=== PATIENT | female | born 1995 | race Hispanic/Latino ===

== ENCOUNTER 2017-08-18 14:54 | Emergency (ER) | payer MEDICAID, SELFPAY ==
[2017-08-18] MEDS ORDERED: Morphine 4 MG/ML VIAL ONE (15:41)
--- NOTE | 2017-08-18 16:13 | RAD ---
SINGLE VIEW OF THE CHEST: Comparison: None. History: Fatigue for two weeks. Chest pain. FINDINGS: Single view of the chest shows a normal sized cardiomediastinal silhouette. There is no evidence of c onsolidation, mass, or pleural effusion. The bones are unremarkable. IMPRESSION: No evidence of acute cardiopulmonary disease. POS: [facility]
[2017-08-18 16:56] LABS: #Eosinphils 0.4 thou/uL (0.0-0.7); #Lymphocytes 1.9 thou/uL (1.20-3.40); #Monocytes 0.4 thou/uL (0.11-0.59); #Neutrophils 3.9 thou/uL (1.40-6.50); %Basophils 0.6 % (0.0-1.0); %Eosinophils 5.7 % (0.0-10.0); %Lymphocytes 29.6 % (21.0-51.0); %Monocytes 5.3 % (0.0-10.0); Hematocrit 36.5 % (36.0-47.0); Mean Platelet Volume 9.9 fL (7.4-10.4); Red Blood Cell (RBC) Count 4.26 mill/uL (4.20-5.40); White Blood Cell (WBC) Count 6.6 thou/uL (4.8-10.8)
[2017-08-18 17:18] LABS: ALT (SGPT) 25 U/L (8-55); AST (SGOT) 16 U/L (5-34); Alkaline Phosphatase 86 U/L (40-150); Anion Gap 8 mmol/L (10-20); BUN (Urea Nitrogen) 12 mg/dL (7.0-18.7); Bilirubin, Total 0.6 mg/dL (0.2-1.2); Calc. Creatinine Clearance 0 mL/min (70-130); Calcium 8.7 mg/dL (7.8-10.44); Carbon Dioxide 28 mmol/L (22-29); Chloride 106 mmol/L (98-107); Estimated GFR-MDRD 73; Globulin 3.4 g/dL (2.4-3.5); Lipase 17 U/L (8-78); Protein, Total 7.2 g/dL (6.0-8.3)
--- NOTE | 2017-08-18 17:38 | ULT ---
GALLBLADDER ULTRASOUND: 08/18/17 HISTORY: Right upper quadrant pain. The gallbladder is contracted and not adequately evaluated. No definite stones identified. Common olaf t is normal caliber. Liver is unremarkable in appearance. The right kidney as imaged is unremarkable. The pancreas is obscured. IMPRESSION: Patient is nonfasting and the gallbladder is contracted. Inadequate evaluation. Recommend repeat exam with overnight fast to adequately assess the gallbladder. POS: [facility]
[2017-08-18 17:57] LABS: Bilirubin Negative (Negative); Blood, Urine Negative (Negative); Glucose, Urine (Dipstick) Negative (Negative); Ketone, Urine Negative (Negative); Nitrite Negative (Negative); Protein, Urine (Dipstick) Negative (Neg-Trace)
[2017-08-18 17:59] LABS: Bacteria/HPF 1+ HPF (None Seen); Hyaline Casts/LPF 0-3 HYALINE CAST LPF (0-3 Hyaline)
[2017-08-18 18:17] LABS: RBC/HPF 0-3 HPF (0-3)
--- NOTE | 2017-08-27 15:53 | EKG ---
Test Reason : Blood Pressure : / mmHG Vent. Rate : 080 BPM Atrial Rate : 080 BPM P-R Int : 146 ms QRS Dur : 080 ms QT Int : 386 ms P-R-T Axes : 047 000 -04 degrees QTc Int : 445 ms Normal sinus rhythm Minimal voltage criteria for LVH, may be normal variant Cannot rule out Anterior infarct , age undetermined Abnormal ECG Confirmed by DEV SHOEMAKER, VERENICE ([id number]), acquisitions editor DANIELA CABRAL ([id number]) on 08/27/2017 3:52:21 PM Referred By: Confirmed By:VERENICE MÉNDEZ MD
== END 2017-08-18 18:40 | disposition home or self-care (01) ==
LOC: ERS 14:54
DX: R55 Syncope and collapse (principal); F41.9 Anxiety disorder, unspecified; F32.9 Major depressive disorder, single episode, unspecified
CPT/HCPCS: 36415; 71010; 76705; 80053; 81003; 81015; 83690; 84703; 85025; 93005; 96361; 96374; J2270

== ENCOUNTER 2018-08-04 12:46 | Emergency (ER) | payer OTHER, SELFPAY ==
[2018-08-04] MEDS ORDERED: Famotidine/PF 20 mg/2ml Vial ONE (13:15)
== END 2018-08-04 15:56 | disposition home or self-care (01) ==
LOC: ERS 12:46
DX: T78.2XXA Anaphylactic shock, unspecified, initial encounter (principal); F41.9 Anxiety disorder, unspecified; F32.9 Major depressive disorder, single episode, unspecified
CPT/HCPCS: 96374; S0028

== ENCOUNTER 2018-10-07 19:24 | Emergency (ER) | payer OTHER, SELFPAY ==
[2018-10-07 19:53] LABS: #Basophils 0.1 thou/uL (0.0-0.2); #Eosinphils 0.3 thou/uL (0.0-0.7); #Lymphocytes 2.4 thou/uL (1.20-3.40); #Monocytes 0.4 thou/uL (0.11-0.59); #Neutrophils 3.9 thou/uL (1.40-6.50); %Basophils 0.9 % (0.0-1.0); %Lymphocytes 34.5 % (21.0-51.0); %Monocytes 5.5 % (0.0-10.0); %Neutrophils 55.1 % (42.0-75.0); Hemoglobin 11.9 g/dL (12.0-16.0); Mean Corpuscular HGB CONC 32.7 g/dL (32.0-36.0); Mean Corpuscular Hemoglobin 26.5 pg (27.0-31.0); Mean Corpuscular Volume 81.2 fL (78.0-98.0); Mean Platelet Volume 10.7 fL (7.4-10.4); Platelet Count 181 thou/uL (130-400); RBC Distribution Width 15.3 % (11.5-14.5); Red Blood Cell (RBC) Count 4.47 mill/uL (4.20-5.40); White Blood Cell (WBC) Count 7.1 thou/uL (4.8-10.8)
[2018-10-07 19:57] LABS: BHCG - Serum POSITIVE (NEGATIVE); Pregs Control Background? CLEAR/WHITE (CLR/WHITE); Pregs Control Bar Appear? YES (CONTROL BAR)
[2018-10-07 20:10] LABS: Bilirubin Negative (Negative); Blood, Urine Negative (Negative); Clarity CLOUDY (Clear); Glucose, Urine (Dipstick) Negative (Negative); Leukocyte Moderate (Negative); Nitrite Negative (Negative); Protein, Urine (Dipstick) Negative (Neg-Trace)
[2018-10-07 20:12] LABS: Bacteria/HPF Rare-Few HPF (None Seen); Hyaline Casts/LPF 0-3 HYALINE CAST LPF (0-3 Hyaline); Pathc Cast-AUWi Flag 0.29 (0-2.49); RBC/HPF 0-3 HPF (0-3)
[2018-10-07 20:14] LABS: ALT (SGPT) 13 U/L (8-55); AST (SGOT) 10 U/L (5-34); Alkaline Phosphatase 65 U/L (40-150); Anion Gap 10 mmol/L (10-20); BUN (Urea Nitrogen) 6 mg/dL (7.0-18.7); Bilirubin, Total 0.4 mg/dL (0.2-1.2); Calc. Creatinine Clearance 0 mL/min (70-130); Calcium 9.5 mg/dL (7.8-10.44); Carbon Dioxide 24 mmol/L (22-29); Chloride 106 mmol/L (98-107); Estimated GFR-MDRD Greater than 90; Globulin 3.4 g/dL (2.4-3.5); Glucose 110 mg/dL (70-105); Lipase 21 U/L (8-78); Potassium 4.1 mmol/L (3.5-5.1); Protein, Total 7.4 g/dL (6.0-8.3); Sodium 136 mmol/L (136-145)
--- NOTE | 2018-10-07 21:40 | ULT ---
PELVIC ULTRASOUND INCLUDING TRANSABDOMINAL AND VASCULAR DUPLEX WITH COLOR AND SPECTRAL DOPPLER IMAGIN 10/07/18 No transvaginal exam was performed. HISTORY: Pelvic pain. Confirm intrauterine . There is an early viable intrauterine with a heart rate of 178 beats per minute. [place] n-rump length equals 2.5 cm equivalent to 9 weeks, 2 days gestation. Small amount of extra chorionic fluid probably extra chorionic hemorrhage. Right ovary measures 1.7 x 2.5 x 2.6 cm. The left ovary me asures 1.8 x 2.5 x 2.3 cm. Vascular duplex demonstrates vascular flow to both ovaries. No evidence for ovarian torsion. No abno rmal fluid collection. IMPRESSION: Early viable intrauterine fetus at 9 weeks, 2 days gestation with an EDC of 05/10/19. Small amount of probable extra chorionic hemorrhage. POS: [facility]
== END 2018-10-07 22:30 | disposition home or self-care (01) ==
LOC: ERS 19:24
DX: O20.0 Threatened abortion (principal); O99.341 Other mental disorders complicating pregnancy, first trimester; F41.9 Anxiety disorder, unspecified; F32.9 Major depressive disorder, single episode, unspecified; Z3A.09 9 weeks gestation of pregnancy
CPT/HCPCS: 36415; 76856; 80053; 81003; 81015; 83690; 84702; 84703; 85025; 86900; 86901; 93976

== ENCOUNTER 2018-12-19 09:37 | Outpatient (CLI) | payer OTHER ==
--- NOTE | 2018-12-19 11:45 | ULT ---
OB ULTRASOUND: HISTORY: Size and dates. COMPARISON: Exam from 10/07/2018. FINDINGS: There is a single viable intrauterine , which is in a cephalic presentation. The cervical c anal length is 4.1 cm. The placenta is posterior in location without evidence of previa. The amniot ic fluid is adequate for this stage of . The amniotic fluid index is 14.5. The heart rate is 152 beats per minute. measurements are as follows: BPD: 4.5 cm (19 weeks 5 days). HEAD CIRCUMFERENCE: 16.6 cm (19 weeks 3 days). ABDOMINAL CIRCUMFERENCE: 14.9 cm (20 weeks 2 days). FEMUR LENGTH: 3.2 cm (19 weeks 6 days). Review of anatomy shows no abnormalities detected. IMPRESSION: 1. Single viable intrauterine , in a cephalic presentation. Overall measurements correspon ding to a gestational age of 19 weeks 6 days. Estimated date of delivery 05/09/2019. 2. Placenta which is posterior in location without evidence of previa. POS: [facility]
== END 2018-12-19 09:38 | disposition home or self-care (01) ==
LOC: BICULT 09:37
PROVIDERS: ATTEND Family Medicine
DX: Z34.82 Encounter for supervision of other normal pregnancy, second trimester (principal); Z3A.19 19 weeks gestation of pregnancy
CPT/HCPCS: 76805

== ENCOUNTER 2018-12-29 17:11 | Emergency (ER) | payer OTHER ==
[2018-12-29] MEDS ORDERED: Famotidine/PF 20 mg/2ml Vial ONE (17:47)
== END 2018-12-29 18:42 | disposition home or self-care (01) ==
LOC: ERS 17:11
DX: O9A.212 Injury, poisoning and certain other consequences of external causes complicating pregnancy, second trimester (principal); T78.40XA Allergy, unspecified, initial encounter; O99.342 Other mental disorders complicating pregnancy, second trimester; F41.9 Anxiety disorder, unspecified; F32.9 Major depressive disorder, single episode, unspecified; Z3A.21 21 weeks gestation of pregnancy
CPT/HCPCS: 94640; 96374; J7620; S0028

== ENCOUNTER 2019-02-05 10:20 | Day surgery (SDC) | payer OTHER ==
[2019-02-05 11:19] VITALS: BMI 31.1
[2019-02-05] MEDS ORDERED: diphenhydrAMINE 50 MG/ML VIAL IVP PRN (11:29)
[2019-02-05] MEDS ORDERED: Lactated Ringer's 1,000 ML IV SCH (11:30)
[2019-02-05] MEDS ORDERED: diphenhydrAMINE 50 MG/ML VIAL ONE (11:33)
[2019-02-05] MEDS ORDERED: Metoclopramide HCl 10 MG/2 ML VIAL ONE (11:36)
[2019-02-05] MEDS: Metoclopramide HCl 10 MG/2 ML VIAL IVP PRN ×2 (11:51→13:08)
--- NOTE | 2019-02-05 15:30 | PRG ---
DATE OF SERVICE: 02/05/2019 OB ED note. TIME OF SERVICE: 1500 hours. PRESENTING COMPLAINT: Headache. HISTORY OF PRESENT ILLNESS: Ms. Castanon is a 23-year-old 5, para 3, AB 1, who presents with a 1-day history of headache that is frontal. She rates it an 8/10. She has had mild nausea. She also had some spots. She denies swelling. She denies history of eclampsia or preeclampsia. 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 Blood type, A positive. Antibody, negative. Pap, negative. Rubella immune. VDRL, nonreactive. Hepatitis B, GC, chlamydia negative. PAST MEDICAL HISTORY: Significant for psychiatric illness including bipolar diagnosis. SURGERIES: Denies. ALLERGIES: NO DRUG ALLERGIES. SOCIAL HISTORY: Denies tobacco, alcohol, or drug abuse. FAMILY HISTORY: Noncontributory. REVIEW OF SYSTEMS: Noncontributory. PHYSICAL EXAMINATION: GENERAL: female, complaining of headache. VITAL SIGNS: Temperature 98.5, respirations 18, blood pressure 118/72. HEENT: Within normal limits. NEURO: Normal neuro exam, DTRs 1+. LUNGS: Clear to auscultation bilaterally. HEART: Regular rate and rhythm. ABDOMEN: Soft, nontender. Fundal height of 25 cm. FHTs 130s. PELVIC: Deferred. EXTREMITIES: No clubbing, cyanosis, or edema. Serial blood pressures remained less than 130s over 80s and no part of the patient's exam was suggestive for preeclampsia. The patient was administered IV fluids along with Reglan 10 mg x2 as well as Benadryl 25 mg, and had an improvement in her headache from 8-9 to 3/10. With negative neurologic findings, decision was made not to proceed with CT scan. The patient was given food, which had caused more improvement in her headache and discharged home with ER precautions. Job ID: [id number]
== END 2019-02-05 15:40 | disposition home health service (06) ==
LOC: L&D/OP 10:20
PROVIDERS: ATTEND Family Medicine
DX: O99.89 Other specified diseases and conditions complicating pregnancy, childbirth and the puerperium (principal); R51 Headache; O99.340 Other mental disorders complicating pregnancy, unspecified trimester; F31.9 Bipolar disorder, unspecified; Z91.018 Allergy to other foods
CPT/HCPCS: 96360; 96361; 96375; 99282; J1200; J2765

== ENCOUNTER 2019-03-31 21:46 | Day surgery (SDC) | payer OTHER ==
[2019-03-31 22:19] VITALS: BP 117/70; TEMP 98.7; BMI 32.7
[2019-03-31 22:40] LABS: Amnisure Test No Membranes Rupture (No Rupture)
[2019-03-31 22:41] LABS: Amnisure Internal Control QC ACCEPTABLE (ACCEPTABLE)
[2019-03-31] MEDS ORDERED: hydrALAZINE 20 MG/ML VIAL SLOW IVP PRN (22:50)
--- NOTE | 2019-03-31 22:52 | PDOC.LDHP ---
Labor and Delivery H&P Chief complaint: loss of fluid HPI: Patient of Dr schafer Time: 2250 Location: Triage HPI: 23 yo with EDC 9/3 at 34 weeks 4 days with possible LOF at 12noon. Few CTX. No VB, no recent trauma. Has good FM. HX Bipolar and anxiety in past but no meds in years. Review of Systems: complete ROS completed and as per HPI Current gestational age (weeks): 34 (4 days) Due date: 05/08/19 Dating criteria: last menstrual period Grav: 5 Para: 3 OB History Details: All SVDs. One PTB at 36 weeks Current complications: none Abnormal US findings: No Past Medical History: HX Anxiety and Bipolar--stable, controlled Current medications: pre-tyrell vitamins Previous surgical history: none Allergies/Adverse Reactions: Allergies Allergy/AdvReac Type Severity Reaction Status Date / Time honey Allergy Severe Hives Verified 02/05/19 11:07 pecan nut Allergy Severe Short of Verified 02/05/19 11:07 Breath Social history: none - Physical Exam Vital signs reviewed and normal: yes (afebrile, BP wnl) General: NAD Heart: RRR Lungs: CTAB Abdomen: gravid Extremeties: no edema FHT: category 2, variable decelerations (Neves accels but occasional variables, good variability) [place] contractions every: rare - Assessment 34 weeks 4 days with c/o LOF at noon today. Variables on NST - Plan Plan: observation in L&D ( sent and negative, I will perform SSE to confirm. Ordered BPP for occasional variables on monitor. OBS.If admitted for labor concern, needs GBS coverage for EGA.)
--- NOTE | 2019-03-31 23:04 | PDOC.EVN ---
Event Note - Event Note Event Note: SSE: Exam explained to patient and partner in danish (for partner). SSE performed per usual technique. No evidenec poolibng. Neg valsalva and cough test. CX visually closed. Await BPP.
--- NOTE | 2019-04-01 08:00 | ULT ---
PRELIMINARY REPORT/[facility]/EMERGENCY AFTER HOURS PROCEDURE: EXAM: US , Limited EXAM DATE/TIME: 03/31/2019 11:46 PM CLINICAL HISTORY: 23 years old, female; Other: Eval for prom, well being; TECHNIQUE: Imaging protocol: Real-time ultrasound of the maternal uterus with image documentation. Exam focused on the clinical indication. COMPARISON: No relevant prior studies available. FINDINGS: Single living intrauterine gestation in vertex presentation. heart rate:145 bpm. BPD: 34w5d. JAMISON(BPD): 05/01/2019. JAMISON(LMP): 05/08/2019. No placental abruption. VONDA: 10 cm. Cervix is not well vis ualized. IMPRESSION: Single viable intrauterine . Findings described above. EXAM: US Biophysical Profile Without Non-Stress Test EXAM DATE/TIME: 03/31/2019 11:46 PM CLINICAL HISTORY: 23 years old, female; Other: Eval for prom, well being; TECHNIQUE: Imaging protocol: US biophysical profile without non-stress testing. COMPARISON: No relevant prior studies available. FINDINGS: Breathin/2 Gross body movements: 2/2 tone: 2/2 Qualitative amniotic fluid: 2/2 IMPRESSION: Biophysical profile score is 8 out of 8. Thank you for allowing us to participate in the care of your patient. Dictated and Authenticated by: Vamshi Virgen MD 04/01/2019 2:27 AM Central Time ([place] & [place]) FINAL REPORT BIOPHYSICAL PROFILE: Date: 03/31/19 IMPRESSION: I agree with the preliminary report provided by Huy. Biophysical profile score is 8 out of 8. POS:
== END 2019-04-01 00:03 | disposition home or self-care (01) ==
LOC: L&D/OP 21:46
PROVIDERS: ATTEND Family Medicine
DX: O99.89 Other specified diseases and conditions complicating pregnancy, childbirth and the puerperium (principal); N89.8 Other specified noninflammatory disorders of vagina; O99.343 Other mental disorders complicating pregnancy, third trimester; F31.9 Bipolar disorder, unspecified; F41.9 Anxiety disorder, unspecified; Z3A.34 34 weeks gestation of pregnancy; Z91.018 Allergy to other foods
CPT/HCPCS: 76819; 84112; 99284

== ENCOUNTER 2019-04-20 15:32 | Day surgery (SDC) | payer OTHER ==
[2019-04-20 16:30] VITALS: BMI 34.1
[2019-04-20] MEDS ORDERED: hydrALAZINE 20 MG/ML VIAL SLOW IVP PRN (17:37)
--- NOTE | 2019-04-20 18:44 | CON ---
DATE OF CONSULTATION: 04/20/2019 PRIMARY OB: Dr. Radu Tadeo. CHIEF COMPLAINT: Abdominal pain and rectal pain and diarrhea. HISTORY OF PRESENT ILLNESS: The patient is a 23-year-old, G5, P3 female with an intrauterine at 37 weeks and 3 days, presenting to Labor and Delivery with abdominal pain. She reports contractions about every 15 minutes that she has been having now for many days. In addition, the patient is having colicky pain in her belly with diarrhea for 2 days. The patient reports she has had about 5 episodes of diarrhea yesterday and again today. She reports the diarrhea is watery. Accompanying this she began having rectal pain today with difficulty in sitting. The patient denies any vaginal bleeding or leakage of fluid. She denies labor. The patient does have a history of 3 prior term deliveries without complications. The patient's next appointment with Dr. Tadeo is on Tuesday. She denies any sick contacts. Denies eating anything independent of her mother. The patient denies any fever, headache, chest pain, or significant shortness of breath. She does have nausea without vomiting. She denies constipation. Denies any new rashes, hip problems, knee problems, or muscle weakness. Again, denies vaginal bleeding or leakage of fluid. Denies urinary urgency or frequency. The patient denies any history of rectal pain or history of hemorrhoids apart from her presenting complaint. PAST MEDICAL HISTORY: Negative. PAST SURGICAL HISTORY: Negative. ALLERGIES: NO KNOWN DRUG ALLERGIES. SOCIAL HISTORY: Denies drug, alcohol, or tobacco use. OB LABS: Blood type is A positive. Antibody screen is negative. RPR is nonreactive. HIV nonreactive. Hepatitis B surface antigen nonreactive, all in the first trimester. She is rubella immune. She has positive for chlamydia earlier in this . REVIEW OF SYSTEMS: Per HPI. PHYSICAL EXAMINATION: VITAL SIGNS: Blood pressure 113/64, heart rate of 106, respiratory rate of 20, saturating 98% to 99% on room air, temperature 98.6. GENERAL: She appears to be in no acute distress. She is alert, oriented, cooperative, and pleasant to interact with. HEAD: Normocephalic and atraumatic. LUNGS: Clear to auscultation bilaterally. HEART: Has regular rate and rhythm. ABDOMEN: Gravid, soft, nontender. She does have normoactive bowel sounds. : Vulva without masses, lesions, or erythema. Rectum is without any obvious hemorrhoids though with palpation in the perirectal area anteriorly. The patient does have a slight bulge beneath the skin that is the source for tenderness. CERVICAL: Per nursing staff, she has fingertip, 20% effaced, and -3 station. heart tracing performed for abdominal pain/contractions in . Baseline is noted to be in the 130s with moderate long-term variability, positive 15/15 accelerations, no decelerations. Tocometer has 2 or 3 contractions over 50 minutes. ASSESSMENT AND PLAN: The patient is a 23-year-old female with an intrauterine at 37 weeks and 3 days, having what appears to be a gastroenteritis, likely viral in nature. The patient is able to tolerate and maintain fluids and p.o. intake, which we have encouraged that she continue to do. She does have an appointment with her primary OB on Tuesday at which time she can follow up. The patient has no evidence of labor. Fetus has a reactive NST and category 1 tracing. The patient has been given term labor precautions and has been discharged to home. Job ID: [id number]
== END 2019-04-20 17:20 | disposition home health service (06) ==
LOC: L&D/OP 15:32
PROVIDERS: ATTEND Family Medicine
DX: O99.89 Other specified diseases and conditions complicating pregnancy, childbirth and the puerperium (principal); R10.9 Unspecified abdominal pain; R19.7 Diarrhea, unspecified; O99.613 Diseases of the digestive system complicating pregnancy, third trimester; K62.89 Other specified diseases of anus and rectum; Z3A.37 37 weeks gestation of pregnancy; Z91.018 Allergy to other foods; Z91.010 Allergy to peanuts
CPT/HCPCS: 99282

== ENCOUNTER 2019-04-27 02:30 | Inpatient (IN) | payer OTHER, SELFPAY ==
[2019-04-27 03:21] VITALS: BMI 34.1
[2019-04-27] MEDS ORDERED: Butorphanol Tartrate 1 MG/ML VIAL SLOW IVP PRN (03:54)
[2019-04-27] MEDS ORDERED: NS / Oxytocin 40 units/1000ml 1,000 ML IV PRN (03:54)
[2019-04-27] MEDS ORDERED: Lidocaine 1% (PF) 30 ML VIAL SC PRN (03:54)
[2019-04-27] MEDS ORDERED: HYDROcodone/Acetaminophen 5/325 mg Tablet PO PRN ×4 (03:54→17:41)
[2019-04-27] MEDS ORDERED: Ibuprofen 800 MG TAB PO PRN (03:54)
[2019-04-27] MEDS ORDERED: Promethazine HCl 25 MG/ML VIAL IM PRN ×3 (03:54→17:41)
[2019-04-27] MEDS ORDERED: Ondansetron PF 4 MG/2 ML Vial IVP PRN ×3 (03:54→17:41)
[2019-04-27] MEDS ORDERED: hydrALAZINE 20 MG/ML VIAL SLOW IVP PRN ×3 (03:54→17:41)
--- NOTE | 2019-04-27 03:58 | PDOC.LDHP ---
Labor and Delivery H&P HPI: Patient of Dr hanh HERNANDEZ: 38 weeks 2 days CC: CTX HPI: 23 yo at 38 weeks 2 days, GBS pos, here with CTX every 3 min. No LOF, no VB, good FM. Has HX CHL this preganncy but treated. Review of Systems: complete ROS performed and as per HPI. Current gestational age (weeks): 38 (2 days) Due date: 05/07/19 Dating criteria: last menstrual period Grav: 5 Para: 3 OB History Details: SVDs Current complications: none Abnormal US findings: No Current medications: pre- vitamins Previous surgical history: none Allergies/Adverse Reactions: Allergies Allergy/AdvReac Type Severity Reaction Status Date / Time honey Allergy Severe Hives Verified 04/27/19 03:19 pecan nut Allergy Severe Short of Verified 04/27/19 03:19 Breath Social history: none - Physical Exam Vital signs reviewed and normal: yes General: NAD Heart: RRR Lungs: CTAB Abdomen: gravid Extremeties: no edema FHT: category 1 [place] contractions every: every 2-3 minutes - Vaginal Exam cm dilated: 2 Effacement: 25% Station: -2 - Assessment Early term, GBS pos, regular ctx rating them "10 out of 10"...early labor. - Plan Plan: admit to L&D, labor augmentation if indicated, GBS antibiotic prophylaxis , informed consent obtained, anesthesia consult for pain management, other ( Admitting due to regular CTX and for pain control, multip.)
[2019-04-27] MEDS ORDERED: Penicillin G Potassium 5 MILL.UNITS in Sodium Chloride 0.9% 100 ML IVPB SCH (04:00)
[2019-04-27 05:55] LABS: Hemoglobin 10.1 g/dL (12.0-16.0); Mean Corpuscular HGB CONC 31.6 g/dL (32.0-36.0); Mean Corpuscular Hemoglobin 24.5 pg (27.0-31.0); Mean Corpuscular Volume 77.4 fL (78.0-98.0); Mean Platelet Volume 12.7 fL (7.4-10.4); Platelet Count 130 thou/uL (130-400); RBC Distribution Width 15.9 % (11.5-14.5); Red Blood Cell (RBC) Count 4.15 mill/uL (4.20-5.40); White Blood Cell (WBC) Count 8.1 thou/uL (4.8-10.8)
[2019-04-27 06:20] LABS: HBSAg Index 0.17 S/CO (0-0.99); HIV (1/2) Antibody/Antigen Non-Reactive (NonReactive); HIV 1/2 INDEX 0.08 S/CO (<1.00); Hep B Surf Ag Non-Reactive S/CO (NonReactive)
[2019-04-27 06:22] LABS: Syphilis Antibody Nonreactive (Nonreactive); Syphilis Antibody Index 0.05 S/CO (<1.00 Non-Reactive)
[2019-04-27] MEDS: Lactated Ringer's 1,000 ML IV SCH ×2 (07:06→09:04)
[2019-04-27] MEDS ORDERED: Fentanyl 4 mcg/Bup 0.1% Cadd 100 ML ONE ×2 (08:55→15:35)
[2019-04-27] MEDS ORDERED: Lidocaine 1.5%/Epinephrine 1:200,000 5 ML AMPUL IJ ONE (08:56)
[2019-04-27] MEDS ORDERED: Acetaminophen 325 MG TAB PO PRN (09:26)
[2019-04-27] MEDS ORDERED: diphenhydrAMINE 50 MG/ML VIAL IVP PRN (09:26)
[2019-04-27] MEDS ORDERED: Naloxone HCl 0.4 mg/ml Vial IVP PRN ×2 (09:26)
[2019-04-27] MEDS ORDERED: Lactated Ringer's 500 ML IV PRN (09:26)
[2019-04-27] MEDS ORDERED: ePHEDrine/0.9% NaCl/PF SYRINGE 50 mg/10 ml SLOW IVP PRN (09:26)
[2019-04-27] MEDS ORDERED: Fentanyl 4 mcg/Bupivacaine 0.1% Cassette 100 ML EPIDURAL SCH (09:30)
[2019-04-27] MEDS ORDERED: Communication Order-Pharmacy FS SCH (09:30)
[2019-04-27] MEDS ORDERED: NS w/ Oxytocin 10 units 500 ML ONE (11:24)
[2019-04-27] MEDS ORDERED: NS w/ Oxytocin 10 units 500 ML IVPB SCH (12:00)
[2019-04-27] MEDS: Penicillin G 2.5 MILL.units 2.5 MILL.UNITS in Premix Bag 1 BAG IVPB SCH ×3 (12:35→19:20)
[2019-04-27] MEDS ORDERED: Misoprostol 200 MCG TAB ONE (13:12)
[2019-04-27] MEDS ORDERED: Adacel (T-DAP) 0.5 ML SYRINGE IM ONE (17:41)
[2019-04-27] MEDS ORDERED: Bisacodyl 10 MG SUPP PR PRN (17:41)
[2019-04-27] MEDS ORDERED: NS / Oxytocin 40 units/1000ml 1,000 ML IV SCH (17:41)
[2019-04-27] MEDS ORDERED: diphenhydrAMINE 25 MG CAP PO PRN (17:41)
[2019-04-27] MEDS ORDERED: Milk Of Magnesia 30 ML UDCUP PO PRN (17:41)
[2019-04-27] MEDS ORDERED: Lanolin Ointment 7 GM TUBE TOP PRN (17:41)
[2019-04-27] MEDS ORDERED: NS / Oxytocin 40 units/1000ml 1,000 ML ONE (17:51)
[2019-04-27] MEDS: Ibuprofen 800 MG TAB PO SCH (22:04)
[2019-04-27] MEDS: Docusate Calcium (SURFAK) 240 MG CAP PO SCH (22:04)
[2019-04-28 05:03] LABS: Hemoglobin 9.5 g/dL (12.0-16.0); Mean Corpuscular HGB CONC 31.9 g/dL (32.0-36.0); Mean Corpuscular Hemoglobin 25.2 pg (27.0-31.0); Mean Corpuscular Volume 78.8 fL (78.0-98.0); Mean Platelet Volume 12.7 fL (7.4-10.4); Platelet Count 116 thou/uL (130-400); Red Blood Cell (RBC) Count 3.77 mill/uL (4.20-5.40); White Blood Cell (WBC) Count 9.5 thou/uL (4.8-10.8)
[2019-04-28] MEDS: Ibuprofen 800 MG TAB PO SCH ×3 (06:03→16:53)
[2019-04-28] MEDS ORDERED: Ferrous Sulfate 325 MG TAB PO SCH (08:00)
[2019-04-28 08:57] VITALS: BP 101/67; TEMP 98.7
[2019-04-28] MEDS ORDERED: Prenatal Vitamin 1 TAB PO SCH (09:00)
[2019-04-28] MEDS: Docusate Calcium (SURFAK) 240 MG CAP PO SCH (09:02)
== END 2019-04-28 17:33 | disposition home or self-care (01) | DRG 807 ==
LOC: L&D/OP 02:30 → L&D 04:41 → 3SE 18:51
PROVIDERS: ADMIT Family Medicine; ATTEND Family Medicine
PROC: 10E0XZZ Delivery of Products of Conception, External Approach (ICD-10-PCS; principal; 2019-04-27)
PROC: 10907ZC Drainage of Amniotic Fluid, Therapeutic from Products of Conception, Via Natural or Artificial Opening (ICD-10-PCS; 2019-04-27)
DX: O99.824 Streptococcus B carrier state complicating childbirth (principal); Z37.0 Single live birth; Z3A.38 38 weeks gestation of pregnancy
CPT/HCPCS: 36415; 51702; 85027; 86780; 86850; 86900; 86901; 87340; 87389; 99283; J2540; J2590; J3490

== ENCOUNTER 2022-05-01 16:46 | Emergency (ER) | payer OTHER, SELFPAY ==
[~2022-05-01 16:46] MED LIST: Iopamidol-370 76% 500 ML 1 ML ONE
[2022-05-01] MEDS ORDERED: Morphine 4 MG/ML VIAL ONE (17:15)
[2022-05-01] MEDS ORDERED: Ondansetron PF 4 MG/2 ML Vial ONE (17:15)
[2022-05-01 18:12] LABS: #Eosinphils 0.1 thou/uL (0.0-0.7); #Monocytes 0.4 thou/uL (0.11-0.59); #Neutrophils 3.6 thou/uL (1.40-6.50); %Basophils 0.3 % (0.0-1.0); %Eosinophils 2.2 % (0.0-10.0); %Lymphocytes 32.1 % (21.0-51.0); %Monocytes 6.3 % (0.0-10.0); %Neutrophils 59.1 % (42.0-75.0); Mean Corpuscular HGB CONC 34.5 g/dL (32.0-36.0); Mean Corpuscular Hemoglobin 30.8 pg (27.0-31.0); Mean Corpuscular Volume 89.3 fL (78.0-98.0); Platelet Count 149 thou/uL (130-400); RBC Distribution Width 12.6 % (11.5-14.5); Red Blood Cell (RBC) Count 4.23 mill/uL (4.20-5.40); White Blood Cell (WBC) Count 6.1 thou/uL (4.8-10.8)
[2022-05-01 18:30] LABS: Pregs Control Background? CLEAR/WHITE (CLR/WHITE); Pregs Control Bar Appear? YES (CONTROL BAR)
[2022-05-01 18:32] LABS: BHCG - Serum Negative (NEGATIVE)
[2022-05-01 18:37] LABS: ALT (SGPT) 19 U/L (8-55); AST (SGOT) 14 U/L (5-34); Albumin 3.9 g/dL (3.5-5.0); Alkaline Phosphatase 59 U/L (40-110); Anion Gap 13 mmol/L (10-20); BUN (Urea Nitrogen) 7 mg/dL (7.0-18.7); Bilirubin, Total 0.7 mg/dL (0.2-1.2); Calc. Creatinine Clearance 0 mL/min (70-130); Carbon Dioxide 25 mmol/L (22-29); Chloride 105 mmol/L (98-107); Estimated GFR 123; Globulin 3.1 g/dL (2.4-3.5); Glucose 108 mg/dL (70-105); Lipase 26 U/L (8-78); Sodium 139 mmol/L (136-145)
[2022-05-01 20:22] LABS: Bacteria/HPF None Seen HPF (None Seen); Bilirubin Negative (Negative); Blood, Urine Negative (Negative); Clarity Clear (Clear); Glucose, Urine (Dipstick) Normal (Negative); Ketone, Urine Negative (Negative); Leukocyte 500 Leu/uL (Negative); Nitrite Negative (Negative); Protein, Urine (Dipstick) Negative (Neg-Trace); RBC/HPF 0-3 HPF (0-3); Urobilinogen Normal mg/dL (Less than 2); pH, Urine 7.5 (5.0-9.0)
[2022-05-01 20:24] LABS: Sperm/HPF Rare HPF (None Seen)
== END 2022-05-01 20:50 | disposition home or self-care (01) ==
LOC: ERS 16:46
DX: N39.0 Urinary tract infection, site not specified (principal); R19.7 Diarrhea, unspecified
CPT/HCPCS: 36415; 74177; 80053; 81003; 81015; 82274; 83605; 83690; 84703; 85025; 96374; 96375; J2270; J2405; Q9967